=== PATIENT | female | born 1965 | race Caucasian/White ===

== ENCOUNTER 2017-03-22 03:18 | Inpatient (IN) | payer BC ==
[~2017-03-22] VITALS: Ht 162.6 cm; Wt 67.6 kg
[2017-03-22 04:16] LABS: BASOPHIL % 0.3 % (0-2); PLATELET COUNT 282 x10^3mcL (130-400); RED CELL DISTRIBUTION WIDTH 13.6 % (11.5-14.5)
[2017-03-22 04:31] LABS: CALCIUM 10.5 mg/dL (8.5-10.1); CARBON DIOXIDE 28.8 mmol/L (21-32); CHLORIDE SERUM 102 mmol/L (98-107); CREATININE SERUM 0.7 mg/dL (0.6-1.0); GFR1 > 60 mL/min; GLUCOSE SERUM 122 mg/dL (74-106); POTASSIUM SERUM 3.7 mmol/L (3.5-5.1); SODIUM SERUM 140 mmol/L (136-145)
[2017-03-22 04:44] LABS: ALBUMIN 3.9 g/dL (3.4-5.0); ALKALINE PHOSPHATASE 105 U/L (46-116); ALT/SGPT 31 U/L (14-59); AMYLASE 55 U/L (25-115); AST/SGOT 29 U/L (15-37); BILIRUBIN TOTAL 0.45 mg/dL (0.20-1.00); LIPASE 157 IU/L (73-393); TOTAL PROTEIN, SERUM 7.3 g/dL (6.4-8.2)
[2017-03-22 09:09] VITALS: BP 123/69
[2017-03-22 09:33] LABS: MAGNESIUM 1.8 mg/dL (1.8-2.4); PHOSPHOROUS 3.9 mg/dL (2.5-4.9)
[2017-03-22 09:50] LABS: T3 TOTAL 1.36 ng/mL
[2017-03-22 09:53] VITALS: BP 123/69
[2017-03-22 10:03] LABS: FREE T4 0.92 ng/dL (0.76-1.46); FREE THYROXINE INDEX 2.9 ug/dL (1.4-4.5)
[2017-03-22] MEDS ORDERED: ESCITALOPRAM10 M1 PO (10:08)
[2017-03-22 12:30] LABS: CHOLESTEROL/HDL RATIO 2.5
[2017-03-22 13:32] VITALS: BP 121/66
[2017-03-22 17:14] VITALS: BP 134/56
[2017-03-22 21:51] VITALS: BP 119/80
[2017-03-23 06:17] VITALS: BP 121/58
[2017-03-23 06:40] LABS: BASOPHIL % 0.5 % (0-2); PLATELET COUNT 266 x10^3mcL (130-400)
[2017-03-23 06:57] LABS: CALCIUM 8.3 mg/dL (8.5-10.1); CARBON DIOXIDE 26.9 mmol/L (21-32); CHLORIDE SERUM 107 mmol/L (98-107); CREATININE SERUM 0.7 mg/dL (0.6-1.0); GFR1 > 60 mL/min; GLUCOSE SERUM 84 mg/dL (74-106); MAGNESIUM 1.9 mg/dL (1.8-2.4); PHOSPHOROUS 3.6 mg/dL (2.5-4.9); POTASSIUM SERUM 3.7 mmol/L (3.5-5.1); SODIUM SERUM 141 mmol/L (136-145)
[2017-03-23 09:38] VITALS: BP 120/70; BP 129/63
[2017-03-23 13:14] VITALS: BP 129/61
[2017-03-23 14:07] VITALS: BP 129/61
== END 2017-03-23 14:45 | disposition home or self-care (01) | DRG 446 ==
LOC: ED 03:18 → DU 07:03
PROVIDERS: Emergency Medicine; ADMIT Family Medicine Sports Medicine
DX: K81.0 Acute cholecystitis (principal); K76.0 Fatty (change of) liver, not elsewhere classified; Z83.3 Family history of diabetes mellitus; Z82.49 Family history of ischemic heart disease and other diseases of the circulatory system; E78.5 Hyperlipidemia, unspecified
CPT/HCPCS: 78226; 83880; 84439; A9537; J2543; J3490; J7030; Q0092; Q0162